=== PATIENT | male | born 1965 | race Caucasian/White ===

== ENCOUNTER → 2018-01-01 12:34 | Outpatient (CLI) | payer BC, SELFPAY ==
--- NOTE | 2018-01-01 | DI.RAD.S_ITS ---
PROCEDURE: FL JOINT INJECTION LARGE LT INDICATIONS: PRIMARY OSTEOARTHRITIS OF LEFT HIP TECHNIQUE: The indications, alternatives, benefits, risks, and complications of the procedure were explained to the patient. Written informed consent was obtained and placed in the chart. The patient was placed in an appropriate position on the fluoroscopy table, and a site was chosen for percutaneous access under fluoroscopic guidance. The site was prepped and draped in a sterile fashion. Local anesthetic was administered using a 1% lidocaine solution. A hypodermic or spinal needle was then used to access the symptomatic joint. Intra-articular location of the needle tip was confirmed by injecting a small amount of contrast, followed by steroid administration. The needle was then withdrawn, and a bandage applied to the puncture site. FINDINGS: Joint injected: Left hip Medications injected: 4 mL of 40 mg/mL Kenalog and 0.5% Ropivacaine mixture. Patient's pain before injection: 8 out of 10. Patient's pain after injection: One out of 10. Complications: None. IMPRESSION: Successful fluoroscopically guided administration of steroid and anaesthetic solution into the left hip joint. Dictated by: Abhay Schwab M.D. on 01/01/2018 at 13:57 Approved by: Abhay Schwab M.D. on 01/01/2018 at 13:58
== END ==
PROVIDERS: PCP Physician Assistant; Visit Provider Orthopaedic Surgery
DX: M16.12 Unilateral primary osteoarthritis, left hip (principal)
CPT/HCPCS: 20610; 77002

== ENCOUNTER → 2019-01-21 10:32 | Outpatient (CLI) | payer BC, SELFPAY ==
--- NOTE | 2019-01-21 | DI.RAD.S_ITS ---
PROCEDURE: FL JOINT INJECTION LARGE LT INDICATIONS: Pain in left hip TECHNIQUE: The indications, alternatives, benefits, risks, and complications of the procedure were explained to the patient. Written informed consent was obtained and placed in the chart. The patient was placed in an appropriate position on the fluoroscopy table, and a site was chosen for percutaneous access under fluoroscopic guidance. The site was prepped and draped in a sterile fashion. Local anesthetic was administered using a 1% lidocaine solution. A hypodermic or spinal needle was then used to access the symptomatic joint. Intra-articular location of the needle tip was confirmed by injecting a small amount of contrast, followed by steroid administration. The needle was then withdrawn, and a bandage applied to the puncture site. FINDINGS: Joint injected: Left hip Medications injected: 1 cc of 40 mg/mL Kenalog and 3 cc 0.5% Ropivacaine mixture. Patient's pain before injection: 6 out of 10. Patient's pain after injection: 1 out of 10. Complications: None. IMPRESSION: Successful fluoroscopically guided administration of steroid and anaesthetic solution into the left hip joint. Dictated by: Dorian Quick M.D. on 01/21/2019 at 11:37 Approved by: Dorian Quick M.D. on 01/21/2019 at 11:38
== END ==
PROVIDERS: PCP Nurse Practitioner Family; Visit Provider Orthopaedic Surgery
DX: M25.552 Pain in left hip (principal)
CPT/HCPCS: 20610; 77002

== ENCOUNTER 2024-09-10 20:28 | Emergency (ER) | payer BC, SELFPAY ==
[2024-09-10 20:36] VITALS: BP 133/61; PULSE 60; RESP 18; TEMP 37.1; O2SAT 98; BMI 28.8
--- NOTE | 2024-09-10 23:12 | ED_ITS ---
HPI - Skin/Abscess/Foreign Bdy General Chief complaint: Skin/Abscess/Foreign Body Stated complaint: fish hook in ear Time Seen by Provider: 09/10/24 22:22 Source: patient Mode of arrival: Ambulatory Limitations: no limitations History of Present Illness HPI narrative: Otherwise healthy 59-year-old gentleman was fishing [place] today with a new fishing luer ended up getting caught in the upper helix of his left ear. He is unable to get it out, he notes that it is a barbed lower. It was clean prior to entering the ear. Related Data Allergies Allergy/AdvReac Type Severity Reaction Status Date / Time INGREDIENT: NO KNOWN - NO Allergy Unknown Uncoded 09/23/17 13:05 KNOWN DRUG ALLERGY Review of Systems Review of Systems Narrative: Pertinent positive and negative findings as per HPI Patient History Medical History (Updated 09/10/24 @ 23:17 by Rosalba Chen MD) Prolonged QT interval Presence of combination internal cardiac defibrillator (ICD) and pacemaker Social History Smoking Status: Former smoker Smoking Status: Former smoker Exam Initial Vital Signs Initial Vital Signs: Vital Signs Temperature 98.7 F 09/10/24 20:36 Pulse Rate 60 09/10/24 20:36 Respiratory Rate 18 09/10/24 20:36 Blood Pressure 133/61 09/10/24 20:36 Pulse Oximetry 98 09/10/24 20:36 Oxygen Delivery Method Room Air 09/10/24 20:36 General: Alert appropriate in no acute distress HEENT: Fishing lower caught in the inner portion of the upper helix left ear. Does not go through cartilage to the posterior portion of the helix Respiratory: Able to speak in full sentences, no obvious respiratory distress Skin: No obvious rashes, warm and dry Neurologic: Grossly intact no obvious asymmetries or abnormalities Psych: appropriate insight and affect, cooperative Course Vital Signs Vital signs: Vital Signs - 8 hr 09/10/24 20:36 Temperature 98.7 F Pulse Rate 60 Respiratory Rate 18 Blood Pressure 133/61 Pulse Oximetry 98 Oxygen Delivery Method Room Air MDM - Skin/Abscess/Foreign Bdy MDM Narrative Medical decision making narrative: 59-year-old gentleman with a fishing luer car in his upper left ear Areas cleaned, 1 cc of lidocaine is treated around the area Using a 11 blade scalpel, a small incision is made along the inner curve consistent with where the rene was expected to be Using a needle lugo, the fishing hook was backed back out of the ear. It does not look like if involved significant amount of cartilage. Minimal bleeding. Patient tolerated the procedure well Bacitracin dressing placed Discussed what a cartilaginous infection looks like and reasons to return to the emergency department. With a clean foreign body, minimal trauma to remove at and no diabetes I do not think that antibiotics are indicated at this time. No need for imaging or consideration of lab work or hospitalization. Patient is safe for discharge Discharge Plan Departure Patient Disposition: Home Clinical Impression: Fishing hook foreign body Qualifiers: Encounter type: initial encounter Qualified Code(s): W45.8XXA - Other foreign body or object entering through skin, initial encounter Activity Restrictions/Additional Instructions: Thank you for coming in tonight I used a small amount of anesthetic, made a small cut in the skin so that I was able to back out the fistula can rene without causing significant damage to the cartilage or skin of your inner ear. Please place a small amount of antibiotic ointment to the wound for the next couple of days until it appears to be healing nicely. If you notice increasing pain, redness, it hurts to lay on the ear or something is changing, these could be signs of infection and you do need to be re- evaluated Referrals: Jethro Bolanos MD [Primary Care Provider] - Stand Alone Forms: Patient Portal/API/Survey
[2024-09-10] MEDS: BACITRACIN OINT 0.9 GM PCKT 1 APPLIC TOP (23:22)
[2024-09-10 23:31] VITALS: BP 122/66; PULSE 64; RESP 16; O2SAT 99
== END 2024-09-10 23:31 | disposition home or self-care (01) ==
PROVIDERS: Emergency Provider Emergency Medicine; PCP Student in an Organized Health Care Education/Training Program
DX: S00.452A Superficial foreign body of left ear, initial encounter (principal); W45.8XXA Other foreign body or object entering through skin, initial encounter; Y93.89 Activity, other specified
CPT/HCPCS: 69200; 99282